=== PATIENT | male | born 1985 | race American Indian/Alaskan Native ===

== ENCOUNTER 2020-05-06 23:48 | Emergency (ER) | payer SELFPAY ==
[2020-05-07 00:03] VITALS: BP 131/77
--- NOTE | 2020-05-07 00:18 | Emergency Department Report ---
ED ENT HPI - General Chief complaint: Dental/Oral Stated complaint: TOOTHACHE/HEADAHCE Time Seen by Provider: 05/07/20 00:13 Source: patient Mode of arrival: Ambulatory Limitations: No Limitations - History of Present Illness Initial comments: 35-year-old -[place] male with past medical history significant periodontal disease with resulting in recurrent episodes of dental pain and infections who presents emerged department today complaining of having a reemergence of infectious process over the last 3 days.. He reports no fever, chills, sweats reports no chest pain palpitation ports no odynophagia or dysphagia ports no nausea vomiting. MD complaint: tooth pain -: Gradual Location: tooth # 1 - Area of severe dental erosion with adjacent erythema and swelling Quality: dull Consistency: constant Improves with: none Worsens with: none Context- Dental: history of dental caries, poor dental care Associated Symptoms: toothache - Related Data Previous Rx's Medication Instructions Recorded Last Taken Type Amoxicillin [Amoxicillin TAB] 875 mg PO BID #20 tablet 05/07/20 Unknown Rx Chlorhexidine Mouthwash [Peridex] 15 ml MM BID #1 bottle 05/07/20 Unknown Rx Ketorolac [Toradol] 10 mg PO Q6H PRN #15 tablet 05/07/20 Unknown Rx Lidocaine Viscous 2% 5 ml MM Q3H PRN #120 udc 05/07/20 Unknown Rx Allergies Allergy/AdvReac Type Severity Reaction Status Date / Time No Known Allergies Allergy Unverified 05/07/20 00:00 ED Dental HPI - General Chief complaint: Dental/Oral Stated complaint: TOOTHACHE/HEADAHCE Time Seen by Provider: 05/07/20 00:13 Source: patient Mode of arrival: Ambulatory Limitations: No Limitations - Related Data Previous Rx's Medication Instructions Recorded Last Taken Type Amoxicillin [Amoxicillin TAB] 875 mg PO BID #20 tablet 05/07/20 Unknown Rx Chlorhexidine Mouthwash [Peridex] 15 ml MM BID #1 bottle 05/07/20 Unknown Rx Ketorolac [Toradol] 10 mg PO Q6H PRN #15 tablet 03/18/21 Unknown Rx Lidocaine Viscous 2% 5 ml MM Q3H PRN #120 udc 05/07/20 Unknown Rx Allergies Allergy/AdvReac Type Severity Reaction Status Date / Time No Known Allergies Allergy Unverified 05/07/20 00:00 ED Review of Systems ROS: Stated complaint: TOOTHACHE/HEADAHCE Other details as noted in HPI Comment: All other systems reviewed and negative ED Past Medical Hx - Social History Smoking Status: Current Every Day Smoker - Medications Home Medications: Home Medications Medication Instructions Recorded Confirmed Last Taken Type Amoxicillin [Amoxicillin TAB] 875 mg PO BID #20 tablet 05/07/20 Unknown Rx Chlorhexidine Mouthwash [Peridex] 15 ml MM BID #1 bottle 05/07/20 Unknown Rx Ketorolac [Toradol] 10 mg PO Q6H PRN #15 tablet 05/07/20 Unknown Rx Lidocaine Viscous 2% 5 ml MM Q3H PRN #120 udc 05/07/20 Unknown Rx ED Physical Exam - General Limitations: No Limitations General appearance: alert, in no apparent distress - Head Head exam: Present: atraumatic, normocephalic - Eye Eye exam: Present: normal appearance - ENT ENT exam: Present: mucous membranes moist, other (Severe dental erosion with erythema and adjacent gingival erythema. Airway patent tongue uvula midline. No lymphadenopathy noted.) - Neck Neck exam: Present: normal inspection. Absent: lymphadenopathy - Respiratory Respiratory exam: Present: normal lung sounds bilaterally. Absent: respiratory distress - Cardiovascular Cardiovascular Exam: Present: regular rate, normal rhythm. Absent: systolic murmur, diastolic murmur, rubs, gallop - GI/Abdominal GI/Abdominal exam: Present: soft, normal bowel sounds - Rectal Rectal exam: Present: deferred - Extremities Exam Extremities exam: Present: normal inspection - Back Exam Back exam: Present: normal inspection - Neurological Exam Neurological exam: Present: alert, oriented X3 - Psychiatric Psychiatric exam: Present: normal affect, normal mood - Skin Skin exam: Present: warm, dry, intact, normal color. Absent: rash ED Course Vital Signs 05/07/20 00:01 Temperature 98.0 F Pulse Rate 81 Respiratory 18 Rate Blood Pressure 131/77 O2 Sat by Pulse 95 Oximetry ED Medical Decision Making - Medical Decision Making 35-year-old F [place] male with advanced dental disease erosion and some evidence of a evolving infectious process plans put him on antimicrobials and analgesia pain control having a follow-up with a dental clinic for definitive treatment and management. The patient is alert and oriented x3 he is able to tolerate oral speaks in full sentences with no swallowing issues. Critical care attestation.: If time is entered above; I have spent that time in minutes in the direct care of this critically ill patient, excluding procedure time. ED Disposition Clinical Impression: Infected dental caries, Dentalgia Disposition: TO HOME OR SELFCARE Is pt being admited?: No Does the pt Need Aspirin: No Condition: Stable Instructions: Dental Extraction, [id number], Dental Abscess, Preventive Dental Care, Adult, Dental Extraction, Care After, [id number] Prescriptions: Amoxicillin [Amoxicillin TAB] 875 mg PO BID #20 tablet Lidocaine Viscous 2% 5 ml MM Q3H PRN #120 udc PRN Reason: Pain, Moderate (4-6) Chlorhexidine Mouthwash [Peridex] 15 ml MM BID #1 bottle Ketorolac [Toradol] 10 mg PO Q6H PRN #15 tablet PRN Reason: Pain [facility] [Outside] - 3-5 Days
== END 2020-05-07 00:20 | disposition home or self-care (01) ==
LOC: ED 23:48
DX: K08.89 Other specified disorders of teeth and supporting structures (principal); K02.9 Dental caries, unspecified; F17.200 Nicotine dependence, unspecified, uncomplicated; Z79.899 Other long term (current) drug therapy
CPT/HCPCS: 99282